=== PATIENT | female | born 1970 | race Caucasian/White ===

== ENCOUNTER 2018-10-22 17:16 | Emergency (ER) | payer SELFPAY ==
--- NOTE | 2018-10-22 18:07 | EDPHYS ---
Physician Documentation [facility] Name: Janey Anna Age: 48 yrs Sex: Female : 1970 Arrival Date: 10/22/2018 Time: 17:20 Bed 28 Private MD: ED Physician Jacob Epstein HPI: 10/22 18:00 This 48 yrs old Female presents to ER via Ambulatory with complaints of Ear pm1 Pain, Cough. 18:00 The patient presents with drainage, that is purulent, pain. The complaints affect the pm1 right ear and left ear. Onset: The symptoms/episode began/occurred 2 day(s) ago. Modifying factors: The symptoms are alleviated by nothing, the symptoms are aggravated by nothing. Associated signs and symptoms: Pertinent positives: cough, Pertinent negatives: fever, nausea, shortness of breath, sore throat, vomiting. Severity of symptoms: in the emergency department the symptoms are unchanged. The patient has not experienced similar symptoms in the past. The patient has not recently seen a physician. 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 - Social history:: Smoking status: Patient/guardian denies using tobacco. - Ebola Screening: : Patient negative for fever greater than or equal to 101.5 degrees Fahrenheit, and additional compatible Ebola Virus Disease symptoms Patient denies exposure to infectious person Patient denies travel to an Ebola-affected area in the 21 days before illness onset No symptoms or risks identified at this time. ROS: 18:00 Constitutional: Negative for fever, chills, and weight loss, Eyes: Negative for injury, pm1 pain, redness, and discharge, Neck: Negative for injury, pain, and swelling, Cardiovascular: Negative for chest pain, palpitations, and edema, Abdomen/GI: Negative for abdominal pain, nausea, vomiting, diarrhea, and constipation, Back: Negative for injury and pain, : Negative for injury, bleeding, discharge, and swelling, MS/Extremity: Negative for injury and deformity, Skin: Negative for injury, rash, and discoloration. 18:00 Neuro: Negative for headache, weakness, numbness, tingling, and seizure. 18:00 ENT: Positive for drainage from ear(s), ear pain, Negative for rhinorrhea, sinus congestion, sinus pain, sore throat, dental pain. 18:00 Respiratory: Positive for cough, Negative for shortness of breath, sputum production, wheezing. Exam: 18:00 Constitutional: This is a well developed, well nourished patient who is awake, alert, pm1 and in no acute distress. Head/Face: Normocephalic, atraumatic. Eyes: Pupils equal round and reactive to light, extra-ocular motions intact. Lids and lashes normal. Conjunctiva and sclera are non-icteric and not injected. Cornea within normal limits. Periorbital areas with no swelling, redness, or edema. Neck: Trachea midline, no thyromegaly or masses palpated, and no cervical lymphadenopathy. Supple, full range of motion without nuchal rigidity, or vertebral point tenderness. No Meningismus. Chest/axilla: Normal chest wall appearance and motion. Nontender with no deformity. No lesions are appreciated. Cardiovascular: Regular rate and rhythm with a normal S1 and S2. No gallops, murmurs, or rubs. Normal PMI, no JVD. No pulse deficits. Respiratory: Lungs have equal breath sounds bilaterally, clear to auscultation and percussion. No rales, rhonchi or wheezes noted. No increased work of breathing, no retractions or nasal flaring. Abdomen/GI: Soft, non-tender, with normal bowel sounds. No distension or tympany. No guarding or rebound. No evidence of tenderness throughout. Back: No spinal tenderness. No costovertebral tenderness. Full range of motion. Skin: Warm, dry with normal turgor. Normal color with no rashes, no lesions, and no evidence of cellulitis. 18:00 MS/ Extremity: Pulses equal, no cyanosis. Neurovascular intact. Full, normal range of motion. 18:00 ENT: External ear(s): are unremarkable, Ear canal(s): are normal, TM's: bulging, bilaterally, erythema, on the left, rupture, is not appreciated, bilaterally, Nose: is normal, Mouth: is normal, (-) trismus no gum abnomalities, no lip abnormalities, no mucosal abnormalities, no tongue abnormalities, Posterior pharynx: no acute changes. 18:00 Neuro: Orientation: is normal, Motor: is normal, moves all fours, Sensation: is normal, no obvious gross deficits, Gait: is steady, at a normal pace, without difficulty. Vital Signs: 17:40 BP 124 / 81; Pulse 70; Resp 19; Temp 98.1; Pulse Ox 99% on R/A; Weight 61.23 kg; Height aj 5 ft. 8 in. (172.72 cm); 17:40 Body Mass Index 20.53 (61.23 kg, 172.72 cm) aj MDM: 17:45 Patient medically screened. [facility] 18:05 Data reviewed: vital signs. Data interpreted: Pulse oximetry: on room air is 99 %. pm1 Interpretation: normal. Counseling: I had a detailed discussion with the patient and/or guardian regarding: the historical points, exam findings, and any diagnostic results supporting the discharge/admit diagnosis, the need for outpatient follow up, an ENT specialist, a family practitioner, to return to the emergency department if symptoms worsen or persist or if there are any questions or concerns that arise at home. Administered Medications: 18:20 Drug: Rocephin (cefTRIAXone) 1 grams Route: IM; Site: right gluteus; rv 18:33 Follow up: Response: No adverse reaction rv Disposition: 10/23 06:41 Co-signature as Attending Physician, Jacob Epstein MD I agree with the assessment and [facility] plan of care. Disposition: 10/22/18 18:06 Discharged to Home. Impression: Otitis media, unspecified, bilateral. - Condition is Stable. - Discharge Instructions: Otitis Media, Adult. - Prescriptions for Zithromax Z- Johnathan 250 mg Oral Tablet - take 1 tablet by ORAL route as directed for 5 days Day 1 - take two (2) tablets one time. Day 2, 3, 4 , 5 take one (1) tablet once daily.; 6 tablet. Tylenol- Codeine #3 300-30 mg Oral Tablet - take 2 tablets by ORAL route every 6 hours As needed; 20 tablet. - Medication Reconciliation Form, Thank You Letter, Antibiotic Education, Prescription Opioid Use form. - Follow up: Emergency Department; When: As needed; Reason: Worsening of condition. Follow up: Private Physician; When: 2 - 3 days; Reason: Recheck today's complaints, Continuance of care, Re-evaluation by your physician. Follow up: oNra Portillo MD; When: 2 - 3 days; Reason: Recheck today's complaints, Continuance of care, Re-evaluation by your physician. - Problem is new. - Symptoms have improved. Signatures: Annabel Bruce, RN RN Jacob Espinosa MD MD cha Marinas, Patrick, ROLL GRINDER OPERATOR ROLL GRINDER OPERATOR pm1 Jay Tabor RN RN rv Corrections: (The following items were deleted from the chart) 10/22 18:34 18:06 10/22/2018 18:06 Discharged to Home. Impression: Otitis media, unspecified, rv bilateral. Condition is Stable. Forms are Medication Reconciliation Form, Thank You Letter, Antibiotic Education, Prescription Opioid Use. Follow up: Emergency Department; When: As needed; Reason: Worsening of condition. Follow up: Private Physician; When: 2 - 3 days; Reason: Recheck today's complaints, Continuance of care, Re-evaluation by your physician. Follow up: Nora Portillo; When: 2 - 3 days; Reason: Recheck today's complaints, Continuance of care, Re-evaluation by your physician. Problem is new. Symptoms have improved. pm1
--- NOTE | 2018-10-22 18:07 | ER ---
Nurse's Notes [facility] Name: Janey Anna Age: 48 yrs Sex: Female : 1970 Arrival Date: 10/22/2018 Time: 17:20 Bed 28 Private MD: Diagnosis: Otitis media, unspecified, bilateral Presentation: 10/22 17:38 Presenting complaint: Patient states: Bilateral ear pain and drainage for 2 days. aj Patient reports recent nasal congestion and frequent blowing of nose. Transition of care: patient was not received from another setting of care. Onset of symptoms was October 20, 2018. Risk Assessment: Do you want to hurt yourself or someone else? Patient reports no desire to harm self or others. Initial Sepsis Screen: Does the patient meet any 2 criteria? No. Patient's initial sepsis screen is negative. Does the patient have a suspected source of infection? No. Patient's initial sepsis screen is negative. Care prior to arrival: None. 17:38 Method Of Arrival: Ambulatory 17:38 Acuity: MECHE 4 aj Triage Assessment: 17:40 General: Appears in no apparent distress. comfortable, Behavior is calm, cooperative, aj appropriate for age. Pain: Complains of pain in right ear and left ear. EENT: Reports decreased hearing in right ear pain in left ear and right ear. Neuro: Level of Consciousness is awake, alert, obeys commands, Oriented to person, place, time, situation, Appropriate for age. Respiratory: Airway is patent Trachea midline Respiratory effort is even, unlabored, Respiratory pattern is regular, symmetrical. Derm: Skin is intact, is healthy with good turgor, Skin is pink, warm \T\ dry. normal. 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 - Social history:: Smoking status: Patient/guardian denies using tobacco. - Ebola Screening: : Patient negative for fever greater than or equal to 101.5 degrees Fahrenheit, and additional compatible Ebola Virus Disease symptoms Patient denies exposure to infectious person Patient denies travel to an Ebola-affected area in the 21 days before illness onset No symptoms or risks identified at this time. Screenin:02 Abuse screen: Denies threats or abuse. Denies injuries from another. Nutritional rv screening: No deficits noted. Tuberculosis screening: No symptoms or risk factors identified. Fall Risk None identified. Assessment: 18:01 General: Appears in no apparent distress. comfortable, Behavior is calm, cooperative. rv Pain: Complains of pain in left ear and right ear. Neuro: Level of Consciousness is awake, alert, obeys commands, Oriented to person, place, time, situation. Cardiovascular: Capillary refill < 3 seconds. Respiratory: Airway is patent. GI: No signs and/or symptoms were reported involving the gastrointestinal system. : No signs and/or symptoms were reported regarding the genitourinary system. EENT: Reports pain in left ear and right ear. Derm: Skin is intact. Musculoskeletal: No signs and/or symptoms reported regarding the musculoskeletal system. Vital Signs: 17:40 BP 124 / 81; Pulse 70; Resp 19; Temp 98.1; Pulse Ox 99% on R/A; Weight 61.23 kg; Height aj 5 ft. 8 in. (172.72 cm); 17:40 Body Mass Index 20.53 (61.23 kg, 172.72 cm) aj ED Course: 17:20 Patient arrived in ED. rg4 17:39 Triage completed. aj 17:40 Arm band placed on left wrist. Patient placed in an exam room. aj 17:44 Roberto Brown NP is PHCP. pm1 17:44 Jacob Epstein MD is Attending Physician. pm1 18:02 Patient has correct armband on for positive identification. Placed in gown. Bed in low rv position. Call light in reach. Side rails up X 1. Pulse ox on. NIBP on. 18:06 Nora Portillo MD is Referral Physician. pm1 18:33 No provider procedures requiring assistance completed. Patient did not have IV access rv during this emergency room visit. Administered Medications: 18:20 Drug: Rocephin (cefTRIAXone) 1 grams Route: IM; Site: right gluteus; rv 18:33 Follow up: Response: No adverse reaction rv Outcome: 18:06 Discharge ordered by . pm1 18:33 Discharged to home ambulatory. rv 18:33 Condition: good 18:33 Discharge instructions given to patient, Instructed on discharge instructions, follow up and referral plans. medication usage, Demonstrated understanding of instructions, follow-up care, medications, Prescriptions given X 2. 18:34 Patient left the ED. rv Signatures: Annabel Bruce, RN RN Roberto Ramon, MALOU LOAD DISPATCHER LOCAL pm1 Anel Waller rg4 Jay Tabor RN RN rv Corrections: (The following items were deleted from the chart) 18:02 18:01 EENT: No signs and/or symptoms were reported regarding the EENT system. rv rv
[2018-10-22] MEDS ORDERED: CEFTRIAXONE 1000 MG/VIAL ONE (18:22)
== END 2018-10-22 18:34 | disposition home or self-care (01) ==
LOC: ER 17:16
DX: H66.93 Otitis media, unspecified, bilateral (principal); I10 Essential (primary) hypertension; Z88.0 Allergy status to penicillin
CPT/HCPCS: 96372; 99283

== ENCOUNTER 2020-11-29 17:57 | Emergency (ER) | payer SELFPAY ==
--- NOTE | 2020-11-29 18:33 | ER ---
Nurse's Notes [facility] Name: Janey Anna Age: 50 yrs Sex: Female : 1970 Arrival Date: 11/29/2020 Time: 17:59 Bed Waiting Private MD: Diagnosis: Rash and other nonspecific skin eruption Presentation: 11/29 18:27 Chief complaint: Patient states: Rash with itching to abdomen for 2 days. Has spread to ll1 breast/legs/back. Coronavirus screen: Client denies travel out of the [place] in the last 14 days. At this time, the client does not indicate any symptoms associated with coronavirus-19. Ebola Screen: Patient denies travel to an Ebola-affected area in the 21 days before illness onset. Initial Sepsis Screen: Does the patient meet any 2 criteria? HR > 90 bpm. No. Patient's initial sepsis screen is negative. Does the patient have a suspected source of infection? Yes: Skin breakdown/wound. Risk Assessment: Do you want to hurt yourself or someone else? Patient reports no desire to harm self or others. Onset of symptoms was November 27, 2020. 18:27 Method Of Arrival: Ambulatory ll1 18:27 Acuity: MECHE 4 ll1 Triage Assessment: 18:28 General: Appears in no apparent distress. Behavior is calm, cooperative. Pain: Denies ll1 pain. Derm: Rash noted that is itchy, papular, Reports rash all over. 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 - Social history:: Smoking status: Patient denies any tobacco usage or history of. Screenin:34 Abuse screen: Denies threats or abuse. Denies injuries from another. Nutritional sv screening: No deficits noted. Tuberculosis screening: No symptoms or risk factors identified. Fall Risk None identified. Assessment: 19:00 Reassessment: No changes from previously documented assessment. Patient and/or family ll1 updated on plan of care and expected duration. Pain level reassessed. Patient is alert, oriented x 3, equal unlabored respirations, skin warm/dry/pink. Vital Signs: 18:27 BP 141 / 83; Pulse 106; Resp 16; Temp 98.5; Pulse Ox 96% ; Height 5 ft. 6 in. (167.64 ll1 cm); Pain 0/10; 19:00 Pulse 93; Resp 16; ll1 ED Course: 17:59 Patient arrived in ED. rg4 18:26 Roberto Brown [facility] is [facility]. pm1 18:26 Andrea Guzmán MD is Attending Physician. pm1 18:26 Arm band placed on. ll1 18:28 Triage completed. ll1 18:34 Patient has correct armband on for positive identification. sv 19:02 No provider procedures requiring assistance completed. Patient did not have IV access sv during this emergency room visit. Administered Medications: 18:34 Drug: Decadron 10 mg Route: IM; Site: right gluteus; ll1 19:02 Follow up: Response: No adverse reaction sv 18:34 Drug: Pepcid 20 mg Route: PO; ll1 19:02 Follow up: Response: No adverse reaction sv 18:35 Drug: Benadryl 25 mg Route: PO; ll1 19:02 Follow up: Response: No adverse reaction sv Outcome: 18:33 Discharge ordered by MD. pm1 19:02 Patient left the ED. ll1 19:02 Discharged to home ambulatory. ll1 19:02 Condition: stable 19:02 Discharge instructions given to patient, Instructed on discharge instructions, follow up and referral plans. medication usage, Demonstrated understanding of instructions, follow-up care, medications, Prescriptions given X 3. Signatures: Nora Acosta RN RN Roberto Brown NP ELECTRICAL ENGINEERING MANAGER pm1 Anel Waller rg4 Kleber Andino RN RN [facility]
--- NOTE | 2020-11-29 18:33 | EDPHYS ---
Physician Documentation [facility] Name: Janey Anna Age: 50 yrs Sex: Female : 1970 Arrival Date: 11/29/2020 Time: 17:59 Bed Waiting Private MD: ED Physician Andrea Guzmán HPI: 11/29 18:26 This 50 yrs old Female presents to ER via Unassigned with complaints of Rash. pm1 18:26 The patient's rash thought to be caused by medication, prozac possibly. New medication pm1 for the last 1 month. [facility] recommended that she stop taking it now. The rash is located on the body diffusely. The rash can be described as raised. Onset: The symptoms/episode began/occurred 2 day(s) ago. Associated signs and symptoms: Pertinent positives: itching, Pertinent negatives: swelling of lips, swelling of throat, swelling of tongue, shortness of breath. Severity of symptoms: in the emergency department the symptoms are worse. Treatment given at home: Benadryl. The patient has experienced a previous episode, rash from penicillin. The patient has been recently seen by a physician: with different complaint(s), recently prescribed prozac 1 month ago. 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 - Social history:: Smoking status: Patient denies any tobacco usage or history of. ROS: 18:27 Constitutional: Negative for fever, chills, and weight loss. pm1 18:27 Neuro: Negative for headache, weakness, numbness, tingling, and seizure. 18:27 Cardiovascular: Negative for chest pain, palpitations, and edema, Respiratory: Negative for shortness of breath, cough, wheezing, and pleuritic chest pain, MS/Extremity: Negative for injury and deformity. 18:27 Skin: Positive for rash, diffusely. pm1 Exam: 18:27 Constitutional: This is a well developed, well nourished patient who is awake, alert, pm1 and in no acute distress. Head/Face: Normocephalic, atraumatic. 18:27 Neck: Trachea midline, no thyromegaly or masses palpated, and no cervical lymphadenopathy. Supple, full range of motion without nuchal rigidity, or vertebral point tenderness. No Meningismus. 18:27 MS/ Extremity: Pulses equal, no cyanosis. Neurovascular intact. Full, normal range of motion. 18:27 ENT: Posterior pharynx: Tonsils: bilaterally enlarged, with erythema, with exudate, peritonsillar mass, is not appreciated. 18:27 Cardiovascular: Rate: normal, Rhythm: regular, Pulses: no pulse deficits are appreciated. 18:27 Respiratory: Exam negative for acute changes, shortness of breath, the patient does not display signs of respiratory distress. 18:27 Neuro: Orientation: is normal, Mentation: is normal, Motor: is normal, moves all fours, Sensation: is normal, no obvious gross deficits. Vital Signs: 18:27 BP 141 / 83; Pulse 106; Resp 16; Temp 98.5; Pulse Ox 96% ; Height 5 ft. 6 in. (167.64 ll1 cm); Pain 0/10; 19:00 Pulse 93; Resp 16; ll1 MDM: 18:29 Data reviewed: vital signs. Counseling: I had a detailed discussion with the patient pm1 and/or guardian regarding: the historical points, exam findings, and any diagnostic results supporting the discharge/admit diagnosis, the need for outpatient follow up, an allergy/communication specialist, to return to the emergency department if symptoms worsen or persist or if there are any questions or concerns that arise at home. 18:33 Patient medically screened. pm1 Administered Medications: 18:34 Drug: Decadron 10 mg Route: IM; Site: right gluteus; ll1 19:02 Follow up: Response: No adverse reaction sv 18:34 Drug: Pepcid 20 mg Route: PO; ll1 19:02 Follow up: Response: No adverse reaction sv 18:35 Drug: Benadryl 25 mg Route: PO; ll1 19:02 Follow up: Response: No adverse reaction sv Disposition: 11/30 14:04 Co-signature as Attending Physician, Roberto Brown NP I agree with the assessment and kdr plan of care. Disposition: 11/29/20 18:33 Discharged to Home. Impression: Rash and other nonspecific skin eruption. - Condition is Stable. - Discharge Instructions: Hives, Rash. - Prescriptions for Benadryl 25 mg Oral Capsule - take 1 capsule by ORAL route every 6 hours As needed; 30 tablet. Pepcid 20 mg Oral Tablet - take 1 tablet by ORAL route every 12 hours for 10 days; 20 tablet. Medrol (Johnathan) 4 mg Oral Tablets, Dose Pack - take 1 tablet by ORAL route as directed - follow package instructions; 1 packet. - Medication Reconciliation Form, Thank You Letter, Antibiotic Education, Prescription Opioid Use form. - Follow up: Emergency Department; When: As needed; Reason: Worsening of condition. Follow up: Private Physician; When: 2 - 3 days; Reason: Recheck today's complaints, Continuance of care, Re-evaluation by your physician. - Problem is new. - Symptoms have improved. Signatures: Andrea Guzmán MD MD kdr Marinas, Patrick, NP SHELL FREEZING MACHINE OPERATOR pm1 Kleber Andino RN RN ll1 Nora Acosta RN sv Corrections: (The following items were deleted from the chart) 11/29 19:02 18:33 11/29/2020 18:33 Discharged to Home. Impression: Rash and other nonspecific skin ll1 eruption. Condition is Stable. Forms are Medication Reconciliation Form, Thank You Letter, Antibiotic Education, Prescription Opioid Use. Follow up: Emergency Department; When: As needed; Reason: Worsening of condition. Follow up: Private Physician; When: 2 - 3 days; Reason: Recheck today's complaints, Continuance of care, Re-evaluation by your physician. Problem is new. Symptoms have improved. pm1 19:08 18:27 ENT: Positive for sore throat, Negative for ear pain, pm1 pm1 19:08 18:27 Neck: Negative for injury, pain, and swelling, Cardiovascular: Negative for chest pm1 pain, palpitations, and edema, Respiratory: Negative for shortness of breath, cough, wheezing, and pleuritic chest pain, Back: Negative for injury and pain, MS/Extremity: Negative for injury and deformity, Skin: Negative for injury, rash, and discoloration, pm1
[2020-11-29] MEDS ORDERED: DIPHENHYDRAMINE 25 MG TAB/CAP ONE (18:46)
[2020-11-29] MEDS ORDERED: dexAMETHasone 10 MG/ML VIAL ONE (18:46)
[2020-11-29] MEDS ORDERED: FAMOTIDINE 20 MG TAB ONE (18:47)
[2020-11-29 19:14] VITALS: BP 141/83; TEMP 98.5; O2SAT 96
== END 2020-11-29 19:02 | disposition home or self-care (01) ==
LOC: ER 17:57
DX: R21 Rash and other nonspecific skin eruption (principal); I10 Essential (primary) hypertension; Z88.0 Allergy status to penicillin
CPT/HCPCS: 96372; 99283; J1100